=== PATIENT | female | born 1945 | race Caucasian/White ===

== ENCOUNTER 2023-10-13 09:49 | Outpatient (RCR) | payer OTHER, SELFPAY | END 2023-10-13 23:59 | disposition home or self-care (01) | LOC: RPT 09:49 | PROVIDERS: ATTENDING PHYSICIAN Internal Medicine Rheumatology; FAMILY PHYSICIAN Family Medicine | DX: M81.0 Age-related osteoporosis without current pathological fracture (principal); Z73.6 Limitation of activities due to disability | CPT/HCPCS: 97110; 97162 ==

== ENCOUNTER 2023-11-08 10:54 | Outpatient (RCR) | payer OTHER, SELFPAY | END 2023-11-08 23:59 | disposition home or self-care (01) | LOC: RPT 10:54 | PROVIDERS: ATTENDING PHYSICIAN Internal Medicine Rheumatology; FAMILY PHYSICIAN Family Medicine | DX: M81.0 Age-related osteoporosis without current pathological fracture (principal); Z73.6 Limitation of activities due to disability | CPT/HCPCS: 97110 ==

== ENCOUNTER 2023-11-22 10:55 | Outpatient (RCR) | payer OTHER, SELFPAY | END 2023-11-23 13:47 | disposition home or self-care (01) | LOC: RPT 10:55 | PROVIDERS: ATTENDING PHYSICIAN Internal Medicine Rheumatology; FAMILY PHYSICIAN Family Medicine | DX: M81.0 Age-related osteoporosis without current pathological fracture (principal); Z73.6 Limitation of activities due to disability | CPT/HCPCS: 97110 ==

== ENCOUNTER → 2024-01-09 12:54 | Outpatient (REF) | payer OTHER, SELFPAY | LOC: RAD 12:54 | PROVIDERS: ATTENDING PHYSICIAN Physician Assistant Medical; FAMILY PHYSICIAN Family Medicine | DX: M79.89 Other specified soft tissue disorders (principal) | CPT/HCPCS: 93971 ==

== ENCOUNTER 2024-09-14 13:28 | Emergency (ER) | payer OTHER, SELFPAY ==
--- NOTE | 2024-09-14 17:48 | ED.SKININJ ---
HPI-Injury
General
Chief Complaint: Fall
Source: patient
Exam Limitations: none
Time Seen by Provider: 09/14/24 16:50
Nursing documentation reviewed up to this point in time: agreed with
History of Present Illness-Injury
Is this injury a work related problem?: No
Is pt an associate of [facility]/[place]?: No
Initial Injury comments:
Patient states she tripped over luggage and fell. Hit face on gound. No LOC. COmplains of pain and swelling to nose, abrasion to forehead. Incident occurred just [employer]
Past History
Past History
ED Past Medical History: CAD, Hypercholesterolemia and Other (PUD)
ED Past Surgical History: Other
Social History
Tobacco: Non-smoker
Review of Systems
Review of Systems
Allergies reviewed?: Yes
All Other Systems: ROS reviewed and negative except as documented in HPI and ROS
Constitutional: Reports no symptoms
EENT: Reports no symptoms
Respiratory: Reports no symptoms
Cardiac: Reports no symptoms
ABD/GI: Reports no symptoms
: Reports no symptoms
Musculoskeletal: Reports joint pain (Pain and bruising to nose)
Skin: Reports other (Abrasion to forehead)
Neurological: Reports no symptoms
Psychiatric: Reports no symptoms
Skin Exam
Abrasion
Forehead:
Description of abrasion: superfical/clean
Phy Exam
General Physical Exam
General Presentation: well appearing and no apparent distress
General age: appears stated age
General Skin: warm and dry
General Habitus: normal
Eye Exam
Eye Exam: PERRL, EOMI and globe normal
Neurological Exam
Neurological Exam: alert, oriented x3, no motor deficits, no sensory deficits and speech normal
Musculoskeletal Exam
Musculoskeletal Exam: full ROM, neuro vasc intact and other (Full nonpainful ROM head/neck, back, upper and lower extremities)
Skin Exam
Skin Exam: normal color, warm/dry and no rash
Psychiatric Exam
Psychiatric Exam: normal mood/affect
Course
Orders/Labs/Results
Orders:
Orders
09/14/24 16:57
CT Head W/o Iv Contrast Urgent
Comment:
Reason For Exam: fall
Nasal Bones, complete 3 Views [CR Nasal Bones Comp Min 3 View] Urgent
Comment:
Reason For Exam: fall
Vital Signs
Initial and Last Documented VS:
Initial Vital Signs
Temp Pulse Resp Pulse Ox
98.1 F 70 18 95
09/14/24 13:43 09/14/24 13:43 09/14/24 13:43 09/14/24 13:43
Last Documented Vital Signs
Temp Pulse Resp Pulse Ox
98.1 F 70 18 95
09/14/24 13:43 09/14/24 13:43 09/14/24 13:43 09/14/24 13:43
*Radiology
Radiology exam reviewed: radiology read reviewed
*Critical Care Note
Total Time (30-74mins, 75-104mins- exclusive of procedures): Not Applicable
Update Note
Update Note:
Patient to ED after trip and fall. Hit head on floor. NO LOC. Head CT without evidence of bleeding, fracture. No evidence of nasal bone fx. She is discharged home and will follw up [facility] PCP. Given instructions on s/s to return to ED and she is
agreeable to plan
ED Attending Note
-
Portions of this chart may have been created with voice recognition software.� Occasional wrong word or��sound alike� substitutions may have occurred due to the inherent limitations of voice recognition software.
Discharge Plan
Departure
Patient Disposition: Home (Routine Discharge)
Date of Disposition: 09/14/24
Time of Disposition: 18:39
Patient with high blood pressure during this ER visit?: No
Condition: Good
Covid-19: Not Applicable
Discharge Problem:
Head injury
Instructions: Wound Care (DC), Head Injury in Adults (DC), Contusion (DC)
Prescriptions:
No Action
aspirin [Ecotrin] 325 MG tablet,delayed release (DR/EC)
425 mg PO DAILY
red yeast rice 600 MG tablet
1,200 mg PO DAILY
mupirocin 2 % ointment
1 applic topical TID Qty: 50 0RF
Referrals:
Ovidio Mcgowan, DO [Family Provider] - Follow up in 2-3 days
Interventions
Interventions:
*Risk Screen - Suicide Last Done: 09/14/24 13:43
*General Assessment Last Done: 09/14/24 13:43
*Neglect/Abuse Screening Last Done: 09/14/24 13:43
ED- Fall Risk Assessment Last Done: 09/14/24 16:36
*Nursing Disposition Last Done: 09/14/24 18:53
ED-Musculoskeletal Assessment Last Done: 09/14/24 16:36
ED- Neurological Assessment Last Done: 09/14/24 16:36
ED-Skin Assessment Last Done: 09/14/24 16:36
Discharge Date and Time
Discharge Date/Time: 09/14/24 18:54
Print Language: [id number]
Musculoskeletal Injury Exam
Musculoskeletal Injury Exam
Nose:
Pain with Movement?: Moderate
Tender to palpation?: Moderate
Soft tissue swelling?: Mild
External deformity and angulation?: None
Joint effusion?: None
Contusion?: Moderate
Hematoma-local bleeding into tissue?: Mild
Strain- Sprain- Tear (Connective tissue injury)?: None
Crepitus with movement?: No
Joint instability?: No
Malalignment/deformity?: No
Distal skin color and temperature: normal-warm & good color
Capillary Refill: normal
Normal distal neurovascular exam?: Yes
== END 2024-09-14 18:54 | disposition home or self-care (01) ==
LOC: EMR 13:28
PROVIDERS: EMERGENCY PHYSICIAN Emergency Medicine; FAMILY PHYSICIAN Family Medicine
DX: S09.90XA Unspecified injury of head, initial encounter (principal); S00.81XA Abrasion of other part of head, initial encounter; W01.0XXA Fall on same level from slipping, tripping and stumbling without subsequent striking against object, initial encounter; E78.00 Pure hypercholesterolemia, unspecified; I25.10 Atherosclerotic heart disease of native coronary artery without angina pectoris; Z87.11 Personal history of peptic ulcer disease
CPT/HCPCS: 99284; 70160; 70450